=== PATIENT | male | born 1960 ===

== ENCOUNTER 2018-11-09 08:05 | Observation (INO) | payer OTHER ==
[2018-11-09 08:14] VITALS: BMI 26.7
--- NOTE | 2018-11-09 08:25 | ED PDOC ---
HPI: Chest Pain Time Seen by Provider: 11/09/18 08:19 Chief Complaint (Provider): Chest pain History Per: Patient History/Exam Limitations: no limitations Onset/Duration Of Symptoms: Days (Tuesday) Additional Complaint(s): Pt. with chest pain left side after falling Tuesday. He has no pain elsewhere in neck, head, shoulder, arm, abd. No dizziness. No weakness. No fever. Has dyspnea with the pain. No leg pain or recent travel. No numbness, tingles. Past Medical History Reviewed: Nursing Documentation, Vital Signs Vital Signs: Last Vital Signs Temp 98.4 F 11/09/18 08:13 Pulse 71 11/09/18 08:13 Resp 18 11/09/18 08:13 BP 127/76 11/09/18 08:13 Pulse Ox 97 11/09/18 08:13 - Medical History PMH: No Chronic Diseases - Surgical History Surgical History: No Surg Hx - Family History Family History: States: Unknown Family Hx - Home Medications Home Medications: Ambulatory Orders Medication Instructions Recorded No Known Home Med 11/09/18 - Allergies Allergies/Adverse Reactions: Allergies Allergy/AdvReac Type Severity Reaction Status Date / Time No Known Allergies Allergy Verified 11/09/18 08:43 Review of Systems ROS Statement: Except As Marked, All Systems Reviewed And Found Negative Cardiovascular: Positive for: Chest Pain Respiratory: Positive for: Shortness of Breath Physical Exam - Reviewed Nursing Documentation Reviewed: Yes Vital Signs Reviewed: Yes - Physical Exam Appears: Positive for: Non-toxic, No Acute Distress Head Exam: Positive for: ATRAUMATIC, NORMAL INSPECTION, NORMOCEPHALIC Skin: Positive for: Normal Color, Warm, DRY Eye Exam: Positive for: EOMI, Normal appearance, PERRL ENT: Positive for: Normal ENT Inspection Neck: Positive for: Normal, Painless ROM Cardiovascular/Chest: Positive for: Regular Rate, Rhythm. Negative for: Chest Non Tender (left chest) Respiratory: Positive for: CNT, Normal Breath Sounds Gastrointestinal/Abdominal: Positive for: Normal Exam, Soft. Negative for: Tenderness Back: Positive for: Normal Inspection. Negative for: L CVA Tenderness, R CVA Tenderness Extremity: Positive for: Normal ROM. Negative for: Tenderness, Pedal Edema Neurological/Psych: Positive for: Awake, Alert, Normal Tone - Laboratory Results Result Diagrams: 11/09/18 08:20 11/09/18 08:20 Interpretation Of Abn Labs: no acute - ECG ECG: Positive for: Interpreted By Me, Viewed By Me ECG Rhythm: Positive for: Normal QRS, Sinus Rhythm, Nonspecific Changes O2 Sat by Pulse Oximetry: 97 Pulse Ox Interpretation: Normal - Radiology X-Ray: Interpreted by Me, Viewed By Me X-Ray Interpretation: No Acute Disease - Progress ED Course And Treament: 1155: Spoke with Dr. Foss. Will admit. Tele. Pt. pain free. Disposition - Clinical Impression Clinical Impression: Chest pain - Patient ED Disposition Is Patient to be Admitted: Yes Counseled Patient/Family Regarding: Studies Performed, Diagnosis - Disposition Disposition Time: 11:56 Condition: FAIR
[2018-11-09] MEDS ORDERED: Sodium Chloride 0.9% 1,000 ML IV STA (08:26)
--- NOTE | 2018-11-09 09:10 | RAD ---
Date of service: 11/09/2018 HISTORY: dyspnea COMPARISON: No prior. FINDINGS: LUNGS: The lungs are well inflated and clear. PLEURA: No pleural effusions or pneumothorax. CARDIOVASCULAR: The heart is normal in size. No aortic atherosclerotic calcifications present. OSSEOUS STRUCTURES: Within normal limits for the patient's age. VISUALIZED UPPER ABDOMEN: Normal. OTHER FINDINGS: None. IMPRESSION: No active pulmonary disease.
[2018-11-09 09:24] LABS: BASO # 0.1 K/uL (0.0-0.2); BASO % 0.9 % (0.0-2.0); EOS # 0.1 K/uL (0.0-0.7); HEMOGLOBIN 16.9 g/dL (12.0-18.0); LYMPH # 1.9 K/uL (1.0-4.3); LYMPH % 24.6 % (20.0-40.0); MEAN CELL VOLUME 92.8 fl (80.0-94.0); MEAN CORPUSCULAR HEMOGLOBIN 31.5 pg (27.0-31.0); MEAN PLATELET VOLUME 9.7 fl (7.2-11.7); MONO # 0.6 K/uL (0.0-0.8); MONO % 7.8 % (0.0-10.0); NEUT # 5.2 K/uL (1.8-7.0); NEUT % 65.7 % (50.0-75.0); NRBC % 0.1 % (0.0-0.0); RBC 5.35 Mil/uL (4.40-5.90); RED CELL DISTRIBUTION WIDTH 13.1 % (11.5-14.5); WHITE BLOOD COUNT 7.9 K/uL (4.8-10.8)
[2018-11-09 09:26] LABS: INR 0.9; PROTHROMBIN TIME 10.4 Seconds (9.8-13.1)
[2018-11-09 09:29] LABS: PARTIAL THROMBOPLASTIN TIME 34.2 Seconds (25.6-37.1)
[2018-11-09 09:33] LABS: ALB/GLOB RATIO 1.3 (1.0-2.1); ALBUMIN 4.4 g/dL (3.5-5.0); ALT/SGPT 50 U/L (21-72); AST/SGOT 36 U/L (17-59); BLOOD UREA NITROGEN 18 mg/dl (9-20); CALCIUM 9.5 mg/dL (8.4-10.2); GFR NON-AFRICAN AMERICAN > 60
[2018-11-09 09:44] LABS: B-TYPE NATRIURETIC PEPTIDE 32.6 pg/ml (0-900)
[2018-11-09] MEDS ORDERED: Iodixanol 320 MG/ML 100 ML BOTTLE IV ONE (09:50)
[2018-11-09] MEDS ORDERED: Sodium Chloride 0.9% 50 ML IV ONE (09:50)
--- NOTE | 2018-11-09 11:09 | CT ---
Date of service: 11/09/2018 PROCEDURE: CT Chest with contrast (Pulmonary Angiogram) HISTORY: chest pain COMPARISON: None available. TECHNIQUE: Axial computed tomography images were obtained of the chest in the pulmonary arterial phase of enhancement. Coronal and sagittal reformatted images were created and reviewed. Intravenous contrast dose: Visipaque 320, 99 cc Radiation dose: Total exam DLP = 362.83 mGy-cm. This CT exam was performed using one or more of the following dose reduction techniques: Automated exposure control, adjustment of the mA and/or kV according to patient size, and/or use of iterative reconstruction technique. FINDINGS: PULMONARY ARTERIES: Unremarkable. No pulmonary embolism. AORTA: No acute findings. No thoracic aortic aneurysm. Trace aortic atherosclerotic calcification or mural plaque present. LUNGS: Unremarkable. No nodule, mass or pulmonary consolidation. PLEURAL SPACES: Unremarkable. No effusion or pneumothorax. HEART: Unremarkable. No cardiomegaly. No significant pericardial effusion. LYMPH NODES: No lymphadenopathy. BONES, CHEST WALL: Unremarkable. No fracture or destructive lesion OTHER FINDINGS: Incidental stable benign adrenal adenoma left adrenal gland 1.2 x 1.1 cm. It measures -10 Hounsfield units. IMPRESSION: Unremarkable CT pulmonary angiogram. No pulmonary embolus, infiltrate, pleural or pericardial effusion or significant lymphadenopathy. No definitive pulmonary mass with central airways clear throughout. Incidental benign adrenal adenoma left adrenal gland 1.2 cm.
--- NOTE | 2018-11-09 12:31 | CP.PCM.HP ---
<Bharti Arriola - Last Filed: 11/09/18 12:44> History of Present Illness - History of Present Illness History of Present Illness: 58 yo male with no medical history presents left sided chest pain after sustaining a fall on Tuesday. He fell on his left arm and states he has had th is left sided chest pain since then. The pain is worsened with bending forward and lifting the arm. Pain is 8/10 at its worst, non-radiating, constant, reproductible pain. Denies restrictive movement of left arm. Denies metallic taste, acid reflux, nausea, vomiting, diarrhea, abdominal pain, dysuria, frequency and urgency. ROS: negative except for stated above in HPI Social: Denies smoking history, illicit drug use and alcohol use. Family history: denies history of [place], stroke, DM, HTN. Surgical history: Denies Hospitalizations: Denies PMH: denies; No medications at home Allergies: N.K.D.A. Present on Admission - Present on Admission Any Indicators Present on Admission: No Past Patient History - Past Social History Smoking Status: Never Smoked - PSYCHIATRIC Hx Substance Use: No - SURGICAL HISTORY Hx Surgeries: No - ANESTHESIA Hx Anesthesia: No Meds Allergies/Adverse Reactions: Allergies Allergy/AdvReac Type Severity Reaction Status Date / Time No Known Allergies Allergy Verified 11/09/18 08:43 Physical Exam - Constitutional Appears: Well, Non-toxic, No Acute Distress - Head Exam Head Exam: NORMAL INSPECTION - Eye Exam Eye Exam: Normal appearance, PERRL Pupil Exam: NORMAL ACCOMODATION - ENT Exam ENT Exam: Mucous Membranes Moist, Normal Exam - Neck Exam Neck exam: Positive for: Full Rom, Normal Inspection. Negative for: Lymphadenopathy, Tenderness, Thyromegaly - Respiratory Exam Respiratory Exam: Clear to Auscultation Bilateral, NORMAL BREATHING PATTERN. absent: Accessory Muscle Use, Chest Wall Tenderness, Decreased Breath Sounds, Prolonged Expiratory Phase, Rales, Rhonchi, Wheezes, Respiratory Distress, Stridor - Cardiovascular Exam Cardiovascular Exam: REGULAR RHYTHM, RRR, +S1, +S2. absent: Clicks, Diastolic murmur, Gallop, Irregular Rhythm, JVD, +S4, Systolic Murmur Additional comments: Reproducible Left sided chest pain - GI/Abdominal Exam GI & Abdominal Exam: Normal Bowel Sounds, Soft. absent: Distended, Firm, Mass, Rebound, Rigid, Tenderness - Extremities Exam Extremities exam: Positive for: full ROM, normal capillary refill, normal inspection, pedal pulses present (+2 dorsalis pedis and tibialis pulses ). Ne gative for: calf tenderness, joint swelling, pedal edema, tenderness - Neurological Exam Neurological exam: Alert, Oriented x3 - Psychiatric Exam Psychiatric exam: Normal Affect, Normal Mood - Skin Skin Exam: Dry, Intact, Normal Color, Warm Results - Vital Signs Recent Vital Signs: Last Vital Signs Temp 98.4 F 11/09/18 08:13 Pulse 72 11/09/18 09:15 Resp 19 11/09/18 09:15 BP 110/72 11/09/18 09:15 Pulse Ox 97 11/09/18 11:56 - Labs Result Diagrams: 11/09/18 08:20 11/09/18 08:20 Labs: Laboratory Results - last 24 hr 11/09/18 11/09/18 11/09/18 08:20 08:20 08:20 WBC 7.9 RBC 5.35 Hgb 16.9 Hct 49.7 MCV 92.8 MCH 31.5 H MCHC 34.0 RDW 13.1 Plt Count 214 MPV 9.7 Neut % (Auto) 65.7 Lymph % (Auto) 24.6 K[place]t % (Auto) 7.8 Eos % (Auto) 1.0 Baso % (Auto) 0.9 Neut # (Auto) 5.2 Lymph # (Auto) 1.9 Knott # (Auto) 0.6 Eos # (Auto) 0.1 Baso # (Auto) 0.1 PT 10.4 INR 0.9 APTT 34.2 Sodium 139 Potassium 4.1 Chloride 105 Carbon Dioxide 22 Anion Gap 16 BUN 18 Creatinine 0.8 Est GFR ( Amer) > 60 Est GFR (Non-Af Amer) > 60 POC Glucose (mg/dL) Random Glucose 141 H Calcium 9.5 Total Bilirubin 0.5 AST 36 ALT 50 Alkaline Phosphatase 84 Troponin I < 0.0120 NT-Pro-B Natriuret Pep 32.6 Total Protein 7.7 Albumin 4.4 Globulin 3.3 Albumin/Globulin Ratio 1.3 11/09/18 08:44 WBC RBC Hgb Hct MCV MCH MCHC RDW Plt Count MPV Neut % (Auto) Lymph % (Auto) [place] % (Auto) Eos % (Auto) Baso % (Auto) Neut # (Auto) Lymph # (Auto) [place] # (Auto) Eos # (Auto) Baso # (Auto) PT INR APTT Sodium Potassium Chloride Carbon Dioxide Anion Gap BUN Creatinine Est GFR ( Amer) Est GFR (Non-Af Amer) POC Glucose (mg/dL) 146 H Random Glucose Calcium Total Bilirubin AST ALT Alkaline Phosphatase Troponin I NT-Pro-B Natriuret Pep Total Protein Albumin Globulin Albumin/Globulin Ratio Assessment & Plan - Assessment and Plan (Free Text) Assessment: 58 yo male with no medical history presents left sided chest pain admitted for observation to rule out ACS. Plan: Reproductible chest pain - Admit to tele for cardiac monitoring - Tylenol for pain given motrin didnt help the patient's pain - Flexeril 10mg HS - Repeat EKG at 4 pm - Troponin x1 negative, pending 2 more - Regular diet - JAZMIN score of 0 pts meaning 5% risk - F/U am labs Diet -regular diet DVT prophylaxis: - SCD's - early ambulation <Manpreet Foss D - Last Filed: 11/09/18 13:22> Results - Vital Signs Recent Vital Signs: Last Vital Signs Temp 98.4 F 11/09/18 08:13 Pulse 72 11/09/18 09:15 Resp 19 11/09/18 09:15 BP 110/72 11/09/18 09:15 Pulse Ox 97 11/09/18 11:56 - Labs Result Diagrams: 11/09/18 08:20 11/09/18 08:20 Labs: Laboratory Results - last 24 hr 11/09/18 11/09/18 11/09/18 08:20 08:20 08:20 WBC 7.9 RBC 5.35 Hgb 16.9 Hct 49.7 MCV 92.8 MCH 31.5 H MCHC 34.0 RDW 13.1 Plt Count 214 MPV 9.7 Neut % (Auto) 65.7 Lymph % (Auto) 24.6 K[place]t % (Auto) 7.8 Eos % (Auto) 1.0 Baso % (Auto) 0.9 Neut # (Auto) 5.2 Lymph # (Auto) 1.9 Knott # (Auto) 0.6 Eos # (Auto) 0.1 Baso # (Auto) 0.1 PT 10.4 INR 0.9 APTT 34.2 Sodium 139 Potassium 4.1 Chloride 105 Carbon Dioxide 22 Anion Gap 16 BUN 18 Creatinine 0.8 Est GFR ( Amer) > 60 Est GFR (Non-Af Amer) > 60 POC Glucose (mg/dL) Random Glucose 141 H Calcium 9.5 Total Bilirubin 0.5 AST 36 ALT 50 Alkaline Phosphatase 84 Troponin I < 0.0120 NT-Pro-B Natriuret Pep 32.6 Total Protein 7.7 Albumin 4.4 Globulin 3.3 Albumin/Globulin Ratio 1.3 11/09/18 08:44 WBC RBC Hgb Hct MCV MCH MCHC RDW Plt Count MPV Neut % (Auto) Lymph % (Auto) Knott % (Auto) Eos % (Auto) Baso % (Auto) Neut # (Auto) Lymph # (Auto) Knott # (Auto) Eos # (Auto) Baso # (Auto) PT INR APTT Sodium Potassium Chloride Carbon Dioxide Anion Gap BUN Creatinine Est GFR ( Amer) Est GFR (Non-Af Amer) POC Glucose (mg/dL) 146 H Random Glucose Calcium Total Bilirubin AST ALT Alkaline Phosphatase Troponin I NT-Pro-B Natriuret Pep Total Protein Albumin Globulin Albumin/Globulin Ratio Attending/Attestation - Attestation I have personally seen and examined this patient.: Yes I have fully participated in the care of the patient.: Yes I have reviewed all pertinent clinical information: Yes Notes (Text): 11/09/18 13:21 Patient seen and examined with resident. Case discussed and agreed with assessment and plan of management.
[2018-11-09] MEDS ORDERED: Pneumococcal 23-Valent Vaccine IM ONE (15:48)
[2018-11-09] MEDS ORDERED: Influenza Vaccine 60 mcg/0.5 mL SYR (4YR UP) IM ONE (15:48)
--- NOTE | 2018-11-09 16:36 | CARD ---
APPROVED REPORT Date of service: 11/09/2018 EKG Measurement Heart [id number] <Conclusion> Normal sinus rhythm Nonspecific ST and T wave abnormality Abnormal ECG
[2018-11-10 00:06] VITALS: RESP 18
[2018-11-10 05:29] LABS: HEMOGLOBIN 16.1 g/dL (12.0-18.0); MEAN CELL VOLUME 92.6 fl (80.0-94.0); MEAN CORPUSCULAR HEMOGLOBIN 31.4 pg (27.0-31.0); MEAN CORPUSCULAR HGB CONC 33.9 g/dL (33.0-37.0); RBC 5.11 Mil/uL (4.40-5.90); WHITE BLOOD COUNT 7.7 K/uL (4.8-10.8)
[2018-11-10 05:53] LABS: BLOOD UREA NITROGEN 18 mg/dl (9-20); CALCIUM 9.2 mg/dL (8.4-10.2); GFR NON-AFRICAN AMERICAN > 60
[2018-11-10 07:37] VITALS: BP 103/65; PULSE 62; TEMP 98; O2SAT 95
--- NOTE | 2018-11-10 08:52 | CP.PCM.DIS ---
<Bharti Arriola - Last Filed: 11/10/18 09:24> Provider - Provider Date of Admission: 11/09/18 11:55 Attending physician: Manpreet Foss MD Primary care physician: F/U with PMD in 1 week. Time Spent in preparation of Discharge (in minutes): 30 Diagnosis - Discharge Diagnosis (1) Musculoskeletal chest pain Status: Acute Comment: Troponins x3 negative. Cxray without pulmonary disease. CTA negative for PE. Pain secondary to fall sustained on Tuesday. Hospital Course - Lab Results Lab Results: Most Recent Lab Values WBC 7.7 K/uL (4.8-10.8) 11/10/18 05:10 RBC 5.11 Mil/uL (4.40-5.90) 11/10/18 05:10 Hgb 16.1 g/dL (12.0-18.0) 11/10/18 05:10 Hct 47.3 % (35.0-51.0) 11/10/18 05:10 MCV 92.6 fl (80.0-94.0) 11/10/18 05:10 MCH 31.4 pg (27.0-31.0) H 11/10/18 05:10 MCHC 33.9 g/dL (33.0-37.0) 11/10/18 05:10 RDW 13.0 % (11.5-14.5) 11/10/18 05:10 Plt Count 222 K/uL (130-400) 11/10/18 05:10 MPV 9.7 fl (7.2-11.7) 11/09/18 08:20 Neut % (Auto) 65.7 % (50.0-75.0) 11/09/18 08:20 Lymph % (Auto) 24.6 % (20.0-40.0) 11/09/18 08:20 [place] % (Auto) 7.8 % (0.0-10.0) 11/09/18 08:20 Eos % (Auto) 1.0 % (0.0-4.0) 11/09/18 08:20 Baso % (Auto) 0.9 % (0.0-2.0) 11/09/18 08:20 Neut # (Auto) 5.2 K/uL (1.8-7.0) 11/09/18 08:20 Lymph # (Auto) 1.9 K/uL (1.0-4.3) 11/09/18 08:20 [place] # (Auto) 0.6 K/uL (0.0-0.8) 11/09/18 08:20 Eos # (Auto) 0.1 K/uL (0.0-0.7) 11/09/18 08:20 Baso # (Auto) 0.1 K/uL (0.0-0.2) 11/09/18 08:20 PT 10.4 Seconds (9.8-13.1) 11/09/18 08:20 INR 0.9 11/09/18 08:20 APTT 34.2 Seconds (25.6-37.1) 11/09/18 08:20 Sodium 139 mmol/l (132-148) 11/10/18 05:10 Potassium 4.1 MMOL/L (3.6-5.0) 11/10/18 05:10 Chloride 103 mmol/L (98-107) 11/10/18 05:10 Carbon Dioxide 26 mmol/L (22-30) 11/10/18 05:10 Anion Gap 14 (10-20) 11/10/18 05:10 BUN 18 mg/dl (9-20) 11/10/18 05:10 Creatinine 0.9 mg/dl (0.8-1.5) 11/10/18 05:10 Est GFR ( Amer) > 60 11/10/18 05:10 Est GFR (Non-Af Amer) > 60 11/10/18 05:10 POC Glucose (mg/dL) 146 mg/dL (65-110) H 11/09/18 08:44 Random Glucose 103 mg/dL (75-110) 11/10/18 05:10 Calcium 9.2 mg/dL (8.4-10.2) 11/10/18 05:10 Total Bilirubin 0.5 mg/dl (0.2-1.3) 11/09/18 08:20 AST 36 U/L (17-59) 11/09/18 08:20 ALT 50 U/L (21-72) 11/09/18 08:20 Alkaline Phosphatase 84 U/L (38-126) 11/09/18 08:20 Troponin I < 0.0120 ng/mL (0.00-0.120) 11/09/18 20:02 NT-Pro-B Natriuret Pep 32.6 pg/ml (0-900) 11/09/18 08:20 Total Protein 7.7 G/DL (6.3-8.2) 11/09/18 08:20 Albumin 4.4 g/dL (3.5-5.0) 11/09/18 08:20 Globulin 3.3 gm/dL (2.2-3.9) 11/09/18 08:20 Albumin/Globulin Ratio 1.3 (1.0-2.1) 11/09/18 08:20 - Hospital Course Hospital Course: 58 yo male with no medical history presented to the ED with left sided chest pain after sustaining a fall on Tuesday, patient admitted for observation to r/o ACS. In the ED he was given NTG and Aspirin which did not relieve the pain. During his stay, was hemodynamically stable. Pain was muskculoskeletal in nature. Troponins x3 negative. Chest Xray no active pulmonary disease. CT scan: CT pulmonary angiogram unremarkable. No pulmonary embolus, infiltrate, pleural or pericardial effusion or significant lymphadenopathy. No pulmonary mass with central airways clear throughout- benign adrenal adenoma left adrenal gland 1.2 cm. Musculoskeletal pain given negative troponins x3, negative chest Xray and negative CT angiogram. Discharge Exam - Head Exam Head Exam: NORMAL INSPECTION - Eye Exam Eye Exam: Normal appearance - ENT Exam ENT Exam: Mucous Membranes Moist - Respiratory Exam Respiratory Exam: Clear to PA & Lateral, NORMAL BREATHING PATTERN, UNREMARKABLE - Cardiovascular Exam Cardiovascular Exam: REGULAR RHYTHM, RRR, +S1, +S2 - GI/Abdominal Exam GI & Abdominal Exam: Normal Bowel Sounds, Soft, Unremarkable. absent: Diminished Bowel Sounds, Distended, Firm, Rebound, Rigid, Tenderness - Extremities Exam Extremities exam: normal capillary refill, normal inspection - Neurological Exam Neurological exam: Alert, Oriented x3 - Psychiatric Exam Psychiatric exam: Normal Affect, Normal Mood - Skin Skin Exam: Dry, Intact, Normal Color, Warm Discharge Plan - Follow Up Plan Condition: GOOD Disposition: HOME/ ROUTINE Patient education suggested?: Yes Instructions: Chest Pain That Is Not Caused by the Heart (DC) Additional Instructions: olesya bar en la clinica dentro 1 semana Referrals: [facility] [Outside] Manpreet Foss MD [Staff Provider] - <Manpreet Foss - Last Filed: 11/10/18 12:54> Provider - Provider Date of Admission: 11/09/18 11:55 Attending physician: Manpreet Foss MD Hospital Course - Lab Results Lab Results: Most Recent Lab Values WBC 7.7 K/uL (4.8-10.8) 11/10/18 05:10 RBC 5.11 Mil/uL (4.40-5.90) 11/10/18 05:10 Hgb 16.1 g/dL (12.0-18.0) 11/10/18 05:10 Hct 47.3 % (35.0-51.0) 11/10/18 05:10 MCV 92.6 fl (80.0-94.0) 11/10/18 05:10 MCH 31.4 pg (27.0-31.0) H 11/10/18 05:10 MCHC 33.9 g/dL (33.0-37.0) 11/10/18 05:10 RDW 13.0 % (11.5-14.5) 11/10/18 05:10 Plt Count 222 K/uL (130-400) 11/10/18 05:10 MPV 9.7 fl (7.2-11.7) 11/09/18 08:20 Neut % (Auto) 65.7 % (50.0-75.0) 11/09/18 08:20 Lymph % (Auto) 24.6 % (20.0-40.0) 11/09/18 08:20 [place] % (Auto) 7.8 % (0.0-10.0) 11/09/18 08:20 Eos % (Auto) 1.0 % (0.0-4.0) 11/09/18 08:20 Baso % (Auto) 0.9 % (0.0-2.0) 11/09/18 08:20 Neut # (Auto) 5.2 K/uL (1.8-7.0) 11/09/18 08:20 Lymph # (Auto) 1.9 K/uL (1.0-4.3) 11/09/18 08:20 [place] # (Auto) 0.6 K/uL (0.0-0.8) 11/09/18 08:20 Eos # (Auto) 0.1 K/uL (0.0-0.7) 11/09/18 08:20 Baso # (Auto) 0.1 K/uL (0.0-0.2) 11/09/18 08:20 PT 10.4 Seconds (9.8-13.1) 11/09/18 08:20 INR 0.9 11/09/18 08:20 APTT 34.2 Seconds (25.6-37.1) 11/09/18 08:20 Sodium 139 mmol/l (132-148) 11/10/18 05:10 Potassium 4.1 MMOL/L (3.6-5.0) 11/10/18 05:10 Chloride 103 mmol/L (98-107) 11/10/18 05:10 Carbon Dioxide 26 mmol/L (22-30) 11/10/18 05:10 Anion Gap 14 (10-20) 11/10/18 05:10 BUN 18 mg/dl (9-20) 11/10/18 05:10 Creatinine 0.9 mg/dl (0.8-1.5) 11/10/18 05:10 Est GFR ( Amer) > 60 11/10/18 05:10 Est GFR (Non-Af Amer) > 60 11/10/18 05:10 POC Glucose (mg/dL) 146 mg/dL (65-110) H 11/09/18 08:44 Random Glucose 103 mg/dL (75-110) 11/10/18 05:10 Calcium 9.2 mg/dL (8.4-10.2) 11/10/18 05:10 Total Bilirubin 0.5 mg/dl (0.2-1.3) 11/09/18 08:20 AST 36 U/L (17-59) 11/09/18 08:20 ALT 50 U/L (21-72) 11/09/18 08:20 Alkaline Phosphatase 84 U/L (38-126) 11/09/18 08:20 Troponin I < 0.0120 ng/mL (0.00-0.120) 11/09/18 20:02 NT-Pro-B Natriuret Pep 32.6 pg/ml (0-900) 11/09/18 08:20 Total Protein 7.7 G/DL (6.3-8.2) 11/09/18 08:20 Albumin 4.4 g/dL (3.5-5.0) 11/09/18 08:20 Globulin 3.3 gm/dL (2.2-3.9) 11/09/18 08:20 Albumin/Globulin Ratio 1.3 (1.0-2.1) 11/09/18 08:20 Attending/Attestation - Attestation I have personally seen and examined this patient.: Yes I have fully participated in the care of the patient.: Yes I have reviewed all pertinent clinical information, including history, physical exam and plan: Yes Notes (Text): 11/10/18 12:54 Patient seen and examined with resident. Case discussed and agreed with assessment. Patient discharged in stable condition. Chest pain not cardiac in origin. <Nellie Naranjo - Last Filed: 11/13/18 13:14> Provider - Provider Date of Admission: 11/09/18 11:55 Attending physician: Manpreet Foss MD Hospital Course - Lab Results Lab Results: Most Recent Lab Values WBC 7.7 K/uL (4.8-10.8) 11/10/18 05:10 RBC 5.11 Mil/uL (4.40-5.90) 11/10/18 05:10 Hgb 16.1 g/dL (12.0-18.0) 11/10/18 05:10 Hct 47.3 % (35.0-51.0) 11/10/18 05:10 MCV 92.6 fl (80.0-94.0) 11/10/18 05:10 MCH 31.4 pg (27.0-31.0) H 11/10/18 05:10 MCHC 33.9 g/dL (33.0-37.0) 11/10/18 05:10 RDW 13.0 % (11.5-14.5) 11/10/18 05:10 Plt Count 222 K/uL (130-400) 11/10/18 05:10 MPV 9.7 fl (7.2-11.7) 11/09/18 08:20 Neut % (Auto) 65.7 % (50.0-75.0) 11/09/18 08:20 Lymph % (Auto) 24.6 % (20.0-40.0) 11/09/18 08:20 [place] % (Auto) 7.8 % (0.0-10.0) 11/09/18 08:20 Eos % (Auto) 1.0 % (0.0-4.0) 11/09/18 08:20 Baso % (Auto) 0.9 % (0.0-2.0) 11/09/18 08:20 Neut # (Auto) 5.2 K/uL (1.8-7.0) 11/09/18 08:20 Lymph # (Auto) 1.9 K/uL (1.0-4.3) 11/09/18 08:20 [place] # (Auto) 0.6 K/uL (0.0-0.8) 11/09/18 08:20 Eos # (Auto) 0.1 K/uL (0.0-0.7) 11/09/18 08:20 Baso # (Auto) 0.1 K/uL (0.0-0.2) 11/09/18 08:20 PT 10.4 Seconds (9.8-13.1) 11/09/18 08:20 INR 0.9 11/09/18 08:20 APTT 34.2 Seconds (25.6-37.1) 11/09/18 08:20 Sodium 139 mmol/l (132-148) 11/10/18 05:10 Potassium 4.1 MMOL/L (3.6-5.0) 11/10/18 05:10 Chloride 103 mmol/L (98-107) 11/10/18 05:10 Carbon Dioxide 26 mmol/L (22-30) 11/10/18 05:10 Anion Gap 14 (10-20) 11/10/18 05:10 BUN 18 mg/dl (9-20) 11/10/18 05:10 Creatinine 0.9 mg/dl (0.8-1.5) 11/10/18 05:10 Est GFR ( Amer) > 60 11/10/18 05:10 Est GFR (Non-Af Amer) > 60 11/10/18 05:10 POC Glucose (mg/dL) 146 mg/dL (65-110) H 11/09/18 08:44 Random Glucose 103 mg/dL (75-110) 11/10/18 05:10 Calcium 9.2 mg/dL (8.4-10.2) 11/10/18 05:10 Total Bilirubin 0.5 mg/dl (0.2-1.3) 11/09/18 08:20 AST 36 U/L (17-59) 11/09/18 08:20 ALT 50 U/L (21-72) 11/09/18 08:20 Alkaline Phosphatase 84 U/L (38-126) 11/09/18 08:20 Troponin I < 0.0120 ng/mL (0.00-0.120) 11/09/18 20:02 NT-Pro-B Natriuret Pep 32.6 pg/ml (0-900) 11/09/18 08:20 Total Protein 7.7 G/DL (6.3-8.2) 11/09/18 08:20 Albumin 4.4 g/dL (3.5-5.0) 11/09/18 08:20 Globulin 3.3 gm/dL (2.2-3.9) 11/09/18 08:20 Albumin/Globulin Ratio 1.3 (1.0-2.1) 11/09/18 08:20
== END 2018-11-10 11:39 | disposition home or self-care (01) ==
LOC: EDBD 08:05 → H.ER 08:05 → H.ERHOLD 11:55 → H.TEL 14:56
DX: R07.89 Other chest pain (principal); Z23 Encounter for immunization; W19.XXXA Unspecified fall, initial encounter
CPT/HCPCS: 36415; 71045; 71275; 80048; 80053; 82948; 83880; 84484; 85025; 85027; 85610; 85730; 90471; 90674; 90732; 93005; 96360; 99285; G0378; J7030; Q9967